=== PATIENT | male | born 1940 | race Caucasian/White ===

== ENCOUNTER 2021-06-20 11:55 | Emergency (ER) | payer MEDICARE ==
--- NOTE | 2021-06-20 12:29 | ED ---
General Adult HPI - General Chief complaint: Extremity Injury, Lower Stated complaint: leg swellin Time Seen by Provider: 06/20/21 12:06 Source: patient Mode of arrival: ambulatory Limitations: no limitations - History of Present Illness Initial comments: Patient is a 80-year-old male with a past medical history of DVT on Coumadin who presents with right leg swelling/redness after injuring it on 06/21/21. Patient reports she was getting up to use the bathroom at night when he accidentally ran into a cedar chest in his home. Patient injured his right leg just below the knee. Patient notes that there were no lacerations. He noticed increased swell ing and redness 2 days ago. Patient saw his primary care today who referred him to the emergency department for DVT rule out. Patient reports he has a history of DVT 10 years ago and that he has been taking Coumadin since. Patient took his Coumadin this morning. On evaluation, patient denies fever, chills, shortness of breath, chest pain, palpitations, abdominal pain, and leg pain. - Related Data Home Medications Medication Instructions Recorded Confirmed Atorvastatin [Lipitor] 20 mg PO HS 06/20/21 06/20/21 Finasteride [Proscar] 5 mg PO HS 06/20/21 06/20/21 Latanoprost [Xalatan 0.005%] 1 drop BOTH EYES HS 06/20/21 06/20/21 Tamsulosin [Flomax] 0.4 mg PO DAILY 06/20/21 06/20/21 Triamterene/Hydrochlorothiazid 1 tab PO DAILY 06/20/21 06/20/21 [Triamterene-Hctz 37.5-25 mg Tb] Verapamil HCl [Verapamil ER] 240 mg PO HS 06/20/21 06/20/21 Warfarin Sodium [Jantoven] 5 mg PO SA 06/20/21 06/20/21 Warfarin Sodium [Jantoven] 7.5 mg PO SUMOTUWETHFR 06/20/21 06/20/21 trandolapriL [Mavik] 2 mg PO DAILY 06/20/21 06/20/21 Previous Rx's Medication Instructions Recorded Sulfamethox-Tmp 800-160Mg [Bactrim 1 each PO Q12HR #20 tab 06/20/21 Ds] Allergies Allergy/AdvReac Type Severity Reaction Status Date / Time No Known Allergies Allergy Verified 06/20/21 13:58 Review of Systems ROS Statement: Those systems with pertinent positive or pertinent negative responses have been documented in the HPI. ROS Other: All systems not noted in ROS Statement are negative. Past Medical History Past Medical History: Hyperlipidemia, Hypertension Additional Past Medical History / Comment(s): varicose veins, dvt History of Any Multi-Drug Resistant Organisms: None Reported Past Surgical History: Joint Replacement, Orthopedic Surgery Additional Past Surgical History / Comment(s): knee Past Psychological History: No Psychological Hx Reported Smoking Status: Never smoker Past Alcohol Use History: Daily Past Drug Use History: None Reported General Exam Limitations: no limitations General appearance: alert, in no apparent distress Head exam: Present: atraumatic, normocephalic, normal inspection Eye exam: Present: normal appearance, PERRL, EOMI. Absent: scleral icterus, conjunctival injection, periorbital swelling Respiratory exam: Present: normal lung sounds bilaterally. Absent: respiratory distress, wheezes, rales, rhonchi, stridor Cardiovascular Exam: Present: regular rate, normal rhythm, normal heart sounds. Absent: systolic murmur, diastolic murmur, rubs, gallop, clicks GI/Abdominal exam: Present: soft, normal bowel sounds. Absent: distended, tenderness, guarding, rebound, rigid Extremities exam: Present: full ROM, normal capillary refill, pedal edema. Absent: normal inspection, tenderness, calf tenderness Right Lower Leg exam: Present: swelling (Right leg is noticeably swollen and warm compared to the left, palpable bulge below knee), erythema. Absent: normal inspection, full ROM, tenderness, abrasion, laceration, deformity, dislocation, Homans' sign Neurological exam: Present: alert, oriented X3, CN II-XII intact Psychiatric exam: Present: normal affect, normal mood Course Vital Signs 06/20/21 11:57 Temperature 97.2 F L Pulse Rate 92 Respiratory 18 Rate Blood Pressure 165/91 O2 Sat by Pulse 99 Oximetry Medical Decision Making - Medical Decision Making This is a 80-year-old male with a past medical history of DVT on Coumadin who presents to the emergency department increased right leg swelling/redness after injury on 06/11/21. CBC is normal with no leukocytosis. Patient did have PJ. Venous duplex of the right lower extremity is negative for DVT. Right leg swelling, redness, and warmth likely due to cellulitis. Patient given first dose of Bactrim for cellulitis and fluid bolus for PJ. Patient will be disc harged with Bactrim. Return parameters discussed. Patient instructed to follow up with primary care provider at earliest available appointment for cellulitis monitoring and repeat labs for kidney function. - Lab Data Result diagrams: 06/20/21 14:01 06/20/21 14:01 Lab Results 06/20/21 06/20/21 06/20/21 Range/Units 12:35 14:01 14:01 WBC 7.4 (3.8-10.6) k/uL RBC 4.58 (4.30-5.90) m/uL Hgb 13.7 (13.0-17.5) gm/dL Hct 42.8 (39.0-53.0) % MCV 93.5 (80.0-100.0) fL MCH 29.8 (25.0-35.0) pg MCHC 31.9 (31.0-37.0) g/dL RDW 13.6 (11.5-15.5) % Plt Count 275 (150-450) k/uL MPV 6.9 Neutrophils % 78 % Lymphocytes % 14 % Monocytes % 6 % Eosinophils % 1 % Basophils % 0 % Neutrophils # 5.7 (1.3-7.7) k/uL Lymphocytes # 1.0 (1.0-4.8) k/uL Monocytes # 0.4 (0-1.0) k/uL Eosinophils # 0.1 (0-0.7) k/uL Basophils # 0.0 (0-0.2) k/uL PT 31.0 H (9.0-12.0) sec INR 3.1 H (<1.2) APTT 37.3 H (22.0-30.0) sec Sodium 138 (137-145) mmol/L Potassium 4.3 (3.5-5.1) mmol/L Chloride 106 (98-107) mmol/L Carbon Dioxide 26 (22-30) mmol/L Anion Gap 6 mmol/L BUN 29 H (9-20) mg/dL Creatinine 1.37 H (0.66-1.25) mg/dL Est GFR (CKD-EPI)AfAm 57 (>60 ml/min/1.73 sqM) Est GFR (CKD-EPI)NonAf 49 (>60 ml/min/1.73 sqM) Glucose 101 H (74-99) mg/dL Calcium 8.9 (8.4-10.2) mg/dL Disposition Clinical Impression: Cellulitis Disposition: HOME SELF-CARE Condition: Good Instructions (If sedation given, give patient instructions): Cellulitis (ED) Additional Instructions: Take medication as prescribed. Follow-up with primary care provider at earliest available appointment for cellulitis and to recheck labs for kidney function. Prescriptions: Sulfamethox-Tmp 800-160Mg [Bactrim Ds] 1 each PO Q12HR #20 tab Is patient prescribed a controlled substance at d/c from ED?: No Referrals: Micheal Gonzalez DO [Primary Care Provider] - 1-2 days Time of Disposition: 15:06
--- NOTE | 2021-06-20 12:53 | US ---
EXAMINATION TYPE: US venous doppler duplex LE RT DATE OF EXAM: 06/20/2021 12:46 PM COMPARISON: NONE CLINICAL HISTORY: erythema/swelling. SIDE PERFORMED: Right TECHNIQUE: The lower extremity deep venous system is examined utilizing real time linear array sonog tato with graded compression, doppler sonography and color-flow sonography. VESSELS IMAGED: Common Femoral Vein Deep Femoral Vein Greater Saphenous Vein * Femoral Vein Popliteal Vein Small Saphenous Vein * Proximal Calf Veins not seen due to swelling (* superficial vessels) Right Leg: Negative for DVT IMPRESSION: 1. Right lower extremity ultrasound negative for deep venous thrombosis
[2021-06-20 12:54] LABS: INR 3.1 (<1.2); Partial Thromboplastin Time 37.3 sec (22.0-30.0)
[2021-06-20 14:34] LABS: Calcium 8.9 mg/dL (8.4-10.2); Potassium 4.3 mmol/L (3.5-5.1)
[2021-06-20] MEDS ORDERED: SODIUM CHLORIDE 0.9% 500 ML 500 ML IV STA (14:44)
[2021-06-20 14:48] LABS: Basophils % (A) 0 %; Eosinophils # (A) 0.1 k/uL (0-0.7); Eosinophils % (A) 1 %; HCT 42.8 % (39.0-53.0); HGB 13.7 gm/dL (13.0-17.5); Lymphocytes % (A) 14 %; MCH 29.8 pg (25.0-35.0); MCHC 31.9 g/dL (31.0-37.0); MCV 93.5 fL (80.0-100.0); Mean Platelet Volume 6.9; Monocytes # (A) 0.4 k/uL (0-1.0); Monocytes % (A) 6 %; Neutrophils # (A) 5.7 k/uL (1.3-7.7); Neutrophils % (A) 78 %; Platelet Count 275 k/uL (150-450); RBC 4.58 m/uL (4.30-5.90); RDW 13.6 % (11.5-15.5); WBC 7.4 k/uL (3.8-10.6)
[2021-06-20] MEDS ORDERED: SULFAMETHOX-TMP 800-160MG 1 EACH TAB PO STA (15:03)
[2021-06-20 16:13] VITALS: BP 160/88; PULSE 90; RESP 16; TEMP 98.7
== END 2021-06-20 16:00 | disposition home or self-care (01) ==
LOC: EC 11:55
DX: L03.115 Cellulitis of right lower limb (principal); I10 Essential (primary) hypertension; E78.5 Hyperlipidemia, unspecified
CPT/HCPCS: 36415; 80048; 85025; 85610; 85730; 96360; 99283

== ENCOUNTER → 2022-09-02 | Outpatient (CLI) | payer MEDICARE ==
--- NOTE | 2022-09-03 15:48 | CA ---
Transthoracic Echo Report Name: Darwin Dodson Age: 82 Gender: M : 1940 Exam Date: 09/02/2022 13:50 Exam Location: [facility] Ht (in): 73 Wt (lb): 260 Ordering Physician: Micheal Gonzalez DO Attending/Referring Phys: Micheal Gonzalez DO Stock Shipper Juanita Sanchez RDCS Procedure CPT: Indications: I12.9, I87.2 Cardiac Hx: Technical Quality: Fair Contrast 1: Total Dose (mL): Contrast 2: Total Dose (mL): MEASUREMENTS (Male / Female) Normal Values 2D ECHO LV Diastolic Diameter PLAX 4.3 cm 4.2 - 5.9 / 3.9 - 5.3 cm LV Systolic Diameter PLAX 2.6 cm IVS Diastolic Thickness 1.1 cm 0.6 - 1.0 / 0.6 - 0.9 cm LVPW Diastolic Thickness 1.2 cm 0.6 - 1.0 / 0.6 - 0.9 cm LV Relative Wall Thickness 0.5 RV Internal Dim ED PLAX 3.1 cm LA Volume 57.9 cm??? 18 - 58 / 22 - 52 cm??? M-MODE Aortic Root Diameter MM 3.8 cm LA Systolic Diameter MM 5.3 cm LA Ao Ratio MM 1.4 AV Cusp Separation MM 1.9 cm DOPPLER AV Peak Velocity 128.2 cm/s AV Peak Gradient 6.6 mmHg AV Mean Velocity 97.5 cm/s AV Mean Gradient 4.0 mmHg AV Velocity Time Integral 26.5 cm LVOT Peak Velocity 121.3 cm/s LVOT Peak Gradient 5.9 mmHg MV Area PHT 2.9 cm??? Mitral E Point Velocity 50.1 cm/s Mitral A Point Velocity 98.7 cm/s Mitral E to A Ratio 0.5 MV Deceleration Time 261.1 ms MV E' Velocity 7.6 cm/s Mitral E to MV E' Ratio 6.6 TR Peak Velocity 255.4 cm/s TR Peak Gradient 26.1 mmHg Right Ventricular Systolic Press 31.1 mmHg FINDINGS Left Ventricle Normal Left ventricular size , normal systolic function with no obvious regional wall motion abnormalities. Normal Left ventricular diastolic filling pattern. Left ventricular ejection fraction is estimated at 55-60 %. Mildly increased left ventricular wall thickness. Right Ventricle Normal right ventricular size and function. Right ventricular systolic pressure within normal limits. Right Atrium Normal right atrial size. Left Atrium Mildly increased left atrial area. Mitral Valve Structurally normal mitral valve. Mild mitral regurgitation. Aortic Valve No aortic valve stenosis or regurgitation. Tricuspid Valve Structurally normal tricuspid valve. Mild tricuspid regurgitation. Pulmonic Valve Structurally normal pulmonic valve. Trace pulmonic regurgitation. Pericardium No pericardial effusion. Aorta Normal size aortic root and proximal ascending aorta. CONCLUSIONS Normal LV size and systolic function Previewed by: Dr. Troy Stearns MD (Electronically Signed) Final Date: 03 September 2022 15:47
== END | disposition home or self-care (01) ==
LOC: RADECHMAIN 13:30
PROVIDERS: ATTEND Family Medicine
DX: I12.9 Hypertensive chronic kidney disease with stage 1 through stage 4 chronic kidney disease, or unspecified chronic kidney disease (principal); I87.2 Venous insufficiency (chronic) (peripheral)
CPT/HCPCS: 93306